=== PATIENT | male | born 1955 | race Caucasian/White ===

== ENCOUNTER 2022-07-16 14:05 | Emergency (ER) | payer MEDICARE, OTHER ==
[~2022-07-16] VITALS: Ht 185.4 cm; Wt 86.0 kg
[2022-07-16 15:51] VITALS: BP 168/88
[2022-07-16] MEDS ORDERED: METH750T22 PO (17:21)
[2022-07-16] MEDS ORDERED: IBUP800T27 PO (17:21)
[2022-07-16] MEDS ORDERED: KETOROLAC TROMETH 60MG/2ML VIAL IM ONE (17:30)
== END 2022-07-16 17:40 | disposition home or self-care (01) ==
LOC: EDBD 14:05 → ER 14:05
DX: S16.1XXA Strain of muscle, fascia and tendon at neck level, initial encounter (principal); Z98.890 Other specified postprocedural states; V49.9XXA Car occupant (driver) (passenger) injured in unspecified traffic accident, initial encounter; Y93.89 Activity, other specified; Y92.89 Other specified places as the place of occurrence of the external cause; Y99.8 Other external cause status
CPT/HCPCS: 71046; 72040; 96372; 99284; J1885